=== PATIENT | male | born 1985 | race Caucasian/White ===

== ENCOUNTER 2019-04-21 14:37 | Emergency (ER) | payer OTHER ==
[2019-04-21 15:18] VITALS: BP 163/86; PULSE 74; TEMP 98; BMI 32.3
--- NOTE | 2019-04-21 15:19 | PDOC ---
Rapid Medical Evaluation Time Seen by Provider: 04/21/19 15:16 Medical Evaluation: 04/21/19 15:16 I have performed a brief in-person evaluation of this patient. The patient presents with a chief complaint of:Works at IT at [employer] and here w/ L knee and L wrist pain. No other injuries. Able to bear weight Pertinent physical exam findings:stable, NAD I have ordered the following:nothing The patient will proceed to the ED for further evaluation. Discharge Disposition - Diagnosis Fall Qualifiers: Encounter type: initial encounter Qualified Code(s): W19.XXXA - Unspecified fall, initial encounter Knee sprain Qualifiers: Encounter type: initial encounter Involved ligament of knee: unspecified ligament Laterality: left Qualified Code(s): S83.92XA - Sprain of unspecified site of left knee, initial encounter Wrist sprain Qualifiers: Encounter type: initial encounter Laterality: left Qualified Code(s): S63.502A - Unspecified sprain of left wrist, initial encounter - Referrals - Patient Instructions - Post Discharge Activity
--- NOTE | 2019-04-21 16:58 | PDOC ---
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 Time Seen by Provider: 04/21/19 15:16 - History of Present Illness Initial Comments: 04/21/19 16:56 34-year-old male without comorbidities presents for evaluation of left knee and wrist pain after a fall while slipping on a grape in the cafeteria he did not hit his head he has no pain at this time in either his knee left knee or left wrist Past History - Past Medical History Allergies/Adverse Reactions: Allergies Allergy/AdvReac Type Severity Reaction Status Date / Time No Known Allergies Allergy Verified 04/21/19 15:19 COPD: No - Psycho Social/Smoking Cessation Hx Smoking History: Never smoked Review of Systems - Review of Systems Musculoskeletal: Yes: Joint Pain *Physical Exam - Vital Signs Last Vital Signs Temp Pulse Resp BP Pulse Ox 98 F 74 18 163/86 98 04/21/19 15:16 04/21/19 15:16 04/21/19 15:16 04/21/19 15:16 04/21/19 15:16 - Physical Exam 04/21/19 16:56 Left wrist skin color and temperature normal range of motion is full there is no tenderness about the elbow distal radius ulnar styloid or snuffbox. No gross sensorimotor deficits full range of motion of the shoulder elbow wrist forearm and fingers 5 out of 5 strength Left knee skin color and temperature normal range of motion is full and nonpainful no medial lateral joint line tenderness no instability or gross sensorimotor deficits thighs and calves are soft and nontender neurovascular intact. Medical Decision Making - Medical Decision Making 04/21/19 16:57 Resolved left knee and left wrist contusions after a fall follow-up with Ortho should there be further issues Discharge - Discharge Information Problems reviewed: Yes Clinical Impression/Diagnosis: Knee contusion, Contusion of wrist, left Fall Qualifiers: Encounter type: initial encounter Qualified Code(s): W19.XXXA - Unspecified fall, initial encounter Clinical Impression/Diagnosis: (Ruled Out): Knee sprain, Wrist sprain Condition: Stable Disposition: HOME - Admission No - Follow up/Referral Referrals: Brenna Park [Primary Care Provider] - Willy Alston DO [Staff Physician] - - Patient Discharge Instructions Additional Instructions: Tylenol and Motrin for any pain or discomfort as directed. Return to the emergency room for worsening symptoms. Without fail follow-up with orthopedic surgery in 2 to 3 days should there be further issues. - Post Discharge Activity
== END 2019-04-21 17:03 | disposition home or self-care (01) ==
LOC: JERFT 14:37
DX: S80.02XA Contusion of left knee, initial encounter (principal); S60.212A Contusion of left wrist, initial encounter; W01.0XXA Fall on same level from slipping, tripping and stumbling without subsequent striking against object, initial encounter; Y93.89 Activity, other specified; Y92.233 Cafeteria of hospital as the place of occurrence of the external cause; Y99.0 Civilian activity done for income or pay
CPT/HCPCS: 99281-25

== ENCOUNTER 2020-04-10 15:29 | Emergency (ER) | payer BC ==
[2020-04-10] MEDS ORDERED: DEXAMETHASONE SOD PHOSPHATE 10 MG/1 ML VIAL IVPUSH ONE (16:09)
[2020-04-10 16:13] VITALS: BMI 38.7
[2020-04-10] MEDS ORDERED: BAMLANIVIMAB 700 MG in SODIUM CHLORIDE 180 ML IVPB ONE (16:33)
[2020-04-10 18:45] LABS: POTASSIUM 4.5 mmol/L (3.5-5.1)
[2020-04-10 18:47] LABS: ALBUMIN 3.6 g/dl (3.4-5.0); BLOOD UREA NITROGEN 8.2 mg/dL (7-18)
[2020-04-10 18:52] LABS: BILIRUBIN,TOTAL 0.2 mg/dL (0.2-1); TOT PROT 6.8 g/dl (6.4-8.2)
[2020-04-10 18:56] LABS: BASO % 0.5 % (0-2.0); EOS % 3.1 % (0-4.5); LYMPH % 24.3 % (8-40); MCH 29.8 pg (25.7-33.7); MCHC 33.4 g/dl (32.0-35.9); MEAN CELL VOLUME 89.1 fl (80-96); MEAN PLT VOLUME 9.9 fl (7.5-11.1); NEUT % 58.1 % (42.8-82.8); PLATELET COUNT 118 K/MM3 (134-434); RBC 5.05 M/mm3 (4.00-5.60); RDW 14.8 % (11.9-15.9); WHITE BLOOD COUNT 3.6 K/mm3 (4.0-10.0)
[2020-04-10 19:05] VITALS: TEMP 98.5
[2020-04-10 22:50] VITALS: BP 129/74; PULSE 76
== END 2020-04-10 22:49 | disposition home or self-care (01) ==
LOC: JER 15:29
DX: R50.9 Fever, unspecified (principal)
CPT/HCPCS: 36415; 71046-TC-FY; 80053; 85025; 99285-25; M0239; Q0239

== ENCOUNTER 2021-06-19 14:50 | Emergency (ER) | payer BC ==
[2021-06-19 15:01] VITALS: BP 136/85; PULSE 73; TEMP 99.2; BMI 40.3
== END 2021-06-19 15:44 | disposition home or self-care (01) ==
LOC: FER 14:50
DX: L03.213 Periorbital cellulitis (principal)
CPT/HCPCS: 99281-25

== ENCOUNTER 2021-10-09 15:12 | Emergency (ER) | payer OTHER, BC ==
[2021-10-09 15:22] VITALS: BP 138/91; PULSE 72; TEMP 98.6; BMI 40.3
== END 2021-10-09 16:08 | disposition home or self-care (01) ==
LOC: FER 15:12
DX: S01.111A Laceration without foreign body of right eyelid and periocular area, initial encounter (principal); W26.8XXA Contact with other sharp object(s), not elsewhere classified, initial encounter
CPT/HCPCS: 99281-25

== ENCOUNTER 2022-09-23 16:03 | Emergency (ER) | payer BC, OTHER ==
[2022-09-23 16:10] VITALS: BP 122/85; PULSE 90; RESP 19; TEMP 99.2; BMI 41.1
[2022-09-23] MEDS ORDERED: ALBUTEROL SO4 2.5/IPRATROPIUM 0.5 INH SOL 3 ML VIAL.NEB. NEB ONE ×2 (17:30→17:33)
[2022-09-23 17:45] LABS: THROAT:GRP A STREP NOT DETECTED (NOTDETECTED)
[2022-09-23] MEDS ORDERED: predniSONE 20 MG TABLET (UD) PO ONE (18:03)
[2022-09-23] MEDS ORDERED: predniSONE 20 MG TABLET (UD) ONE (18:05)
== END 2022-09-23 18:24 | disposition home or self-care (01) ==
LOC: JER 16:03 → JERFT 16:03
PROC: 3E0F7GC Introduction of Other Therapeutic Substance into Respiratory Tract, Via Natural or Artificial Opening (ICD-10-PCS; principal; 2022-09-23)
DX: R06.2 Wheezing (principal); R05.9 Cough, unspecified; R50.9 Fever, unspecified; R09.3 Abnormal sputum; J40 Bronchitis, not specified as acute or chronic; Z20.822 Contact with and (suspected) exposure to COVID-19
CPT/HCPCS: 0241U-QW; 71046-TC-FY; 87651; 99284-25